=== PATIENT | female | born 1980 | race Caucasian/White ===

== ENCOUNTER 2016-04-14 05:38 | Inpatient (IN) | payer OTHER ==
[~2016-04-14] VITALS: Ht 160 cm; Wt 110.7 kg
[~2016-04-14 05:38] MED LIST: AMARYL 2 MG2 MG PO; BACTRIM DS 8001 TAB PO; FENOFIBRATE48 MG PO; FLEXERIL 5MG TAB5 MG PO; GABAPENTIN100 MG PO; GEMFIBROZIL600 MG PO; HCTZ/LISINOPRIL1 TAB PO; IBUPROFEN800 MG PO; LISINOPRIL10 MG PO; METFORMIN1000 MG PO; MOTRIN800 MG PO; OMEGA-3-ACID ETH1 GM PO; TYLENOL #31 TAB PO
--- NOTE | 2016-04-14 09:19 | Operative Report ---
Operative/Inv Procedure Report Surgery Date: 04/14/16 Name of Procedure: A low flap transverse section via Pfannenstiel skin incision lysis of adhesions curettage of uterus Pre-Operative Diagnosis: Previous section term Post-Operative Diagnosis: Same question of accreta Estimated Blood Loss: 500 Surgeon/Automatic Pinsetter Mechanic: TUAN MCKEON,PATRICK Amato and Dr. Jabari Damon Anesthesia: block Operative/Procedure Note Note: Procedure note patient was taken the operating room placed supine position after adequate skin testing for surgery the abdomen was prepped and draped sterile fashion Wilson had been placed sterilely patient was returned spine position the abdomen was taped patient was repositioned the skin was cut was through an old Pfannenstiel skin incision was carried down to the rectus fascia. Rectus fascia was cut in curvilinear fashion I direction using curved males peritoneal cavity was entered high into the abdomen after dissection of the rectus sheath. In the lower uterine segment uterus was nicked bladder flap was developed uterus is entered with the back of knife copious amounts of clear fluid was noted infant was delivered over the abdominal wall cord was reducible cord was clamped and cut was handed pump press operator was waiting delivering to aid in resuscitation placenta was floating inside the uterus at this point was removed there were adherent membranes to the posterior wall these were removed using a Anya a ring forcep on manually with wet dry laps at the end of the uterus was appeared clean I curettage with pushing correct was performed hemostasis was apparent uses oversewn running locking suture of 0 was indicated interrupted [id number] of 0 there was a second running lock of 0 as well uses turned to abdominal cavity irrigated close amounts warm sounds are clear is a small adhesion on the left tube was bleeding it Bovie coagulation stopped bleeding the adhesion all was by the fimbria. Peritoneum was reapproximated 0 fascia was reprocessed and to continue sutures #1 subcutaneous stitch was Bovie coag skin was approximated alivia at the end the case counts correct urine was clear patient was transported recovery room awake alert counts correct Findings: Dense adhesions and the rectus sheet one normal ovaries and tubes bilaterally enlarged uterus adherent membranes to the posterior wall cord around neck 1 viable infant three-vessel cord otherwise normal anatomy
--- NOTE | 2016-04-14 19:40 | Cons- Endocrinology ---
General Information and HPI Consulting Request Date of Consult: 04/14/16 Requested By: Dr Eric Reason for Consult: diabetes type 2 Source of Information: patient, old records Exam Limitations: no limitations History of Present Illness: This 35 yo woman has a known history of type 2 DM associted with obesity. She was managed during her with 10 units of NPH in tthe AM and 18 units of NPH in the PM. She was also on metformin 1000 mg twice a day. Her HBA1C is now 6.2%. She was followed by the high [facility] clinic at [facility]. She hasknown diabetic nephropathy with high grade proteinuria but normal creatinine. The patient underwent a C Section earlier today. She state she feels OK. She did take !0 units of NPH insulin this nmorning before the C Section. The patientalso has a history of hSever hypertriglyceridemia and pancreatis. She has been on Tricor and Lovasa in the past. Allergies/Medications Allergies: Coded Allergies: NO KNOWN ALLERGIES (04/12/16) Home Med List: Docusate Sodium 100 MG CAPSULE 100 MG PO AT BEDTIME PRN STOOL SOFTENER Glimepiride 2 MG TABLET 2 MG PO 8AM DIAB Ibuprofen 600 MG TABLET 600 MG PO Q6P PRN UTERINE CRAMPING METFORMIN HCL (Metformin) 1,000 MG TABLET 1 TAB PO BID DIABETES (Reported) Metformin Hydochloride (Glucophage) 500 MG TABLET 500 MG PO 1/2H B/BREAKF/ DINNER DIABETES OMEGA-3 ACID ETHYL ESTERS ([place]-3 Acid Ethyl Esters) 1 GRAM CAPSULE 2 CAP PO BID CHOLESTEROL (Reported) Oxycodone HCl/Acetaminophen (Percocet 5-325 MG Tablet) 5 MG-325 MG TABLET 1 TAB PO Q4P PRN PAIN SCALE 4-6 (MODERATE) Review of Systems Review of Systems Constitutional: Denies: chills, fever. Cardiovascular: Denies: chest pain. Respiratory: Denies: short of breath. Genitourinary: Denies: dysuria. Neurological/Psychological: Denies: anxiety, depressed. 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 Neck: normal inspection Respiratory: normal breath sounds Cardiovascular: regular rate/rhythm Gastrointestinal: decreased bowel sounds Extremities: normal inspection Assessment/Plan Assessment/Plan The patienthas a history of type 2 DM, morbid obesity, severe hypertriglyceridemia and episodes of pancreatitis in the past. She too 10 units of NPH insulin this morning pror to her C section. She will be strated on D51/2NS atc hour. Will monitor sugars and place her on low dose sliding scale wi Noivolog before meals. Consult Acknowledgment - Thank you for your consult request.
[2016-04-15 07:54] LABS: ABSOLUTE BASOPHIL COUNT 0 /CUMM (0.0-0.2); ABSOLUTE EOSINOPHIL COUNT 0.1 /CUMM (0.0-0.7); ABSOLUTE GRANULOCYTE CT 8.9 /CUMM (1.4-6.5); ABSOLUTE LYMPH COUNT 1.5 /CUMM (1.2-3.4); ABSOLUTE MONOCYTE COUNT 0.6 /CUMM (0.10-0.60); BASOPHIL % 0.4 % (0.0-2.0); EOSINOPHIL % 1.3 % (0-5); GRANULOCYTE % 79.4 % (42.2-75.2); HEMATOCRIT 30.5 % (37-47); MEAN CORPUSCULAR HGB 28.3 PG (27.0-31.0); MEAN CORPUSCULAR HGB CONC 33.6 G/DL (33.0-37.0); MEAN CORPUSCULAR VOLUME 84.3 FL (81.0-99.0); MEAN PLATELET VOLUME 9.5 FL (7.4-10.4); PLATELET COUNT 175 /CUMM (130-400); RBC DISTRIBUTION WIDTH 15.1 % (11.5-14.5); RED BLOOD CELL CT 3.62 /CUMM (4.20-5.40); WHITE BLOOD CELL COUNT 11.2 /CUMM (4.8-10.8)
--- NOTE | 2016-04-15 08:56 | PN- Diabetes ---
Assessment/Plan Assessment: The patient is doing well post . Her fingerstick blood sugar this morning was 197. She has been on premeal NovoLog which was held last night before dinner because her sugar got low probably secondary to the NPH insulin she had taken prior to admission. The patient states that prior to her her sugar was managed on metformin and glimepiride. She is not going to be breast-feeding. We will try to put her back on her usual diabetic medications and monitor her sugars closely. We will continue sliding-scale NovoLog before meals only for sugars above 200. Plan: Suggest begin metformin 500 mg twice a day. Also begin glimepiride 2 mg daily each a.m. Continue sliding-scale NovoLog before meals for now. Subjective Subjective: Feels okay Review of Systems Constitutional: Denies: chills, fever. Cardiovascular: Denies: chest pain. Respiratory: Denies: cough, short of breath. Gastrointestinal: Reports: abdominal pain (secondary to ). Skin: Reports: no symptoms. Objective Last 24 Hrs of Vital Signs/I&O 120/70 Physical Exam General Appearance: alert, awake, comfortable Head: normal appearance Respiratory: normal breath sounds Cardiovascular: regular rate/rhythm Extremities: normal inspection Current Medications: Current Medications Sig/Lexii Start time Last Medication Dose Route Stop Time Status Admin Acetaminophen 650 MG Q4P PRN 04/14 914 AC PO Acetaminophen 1,000 MG Q6P PRN 04/14 914 AC 04/14 N/A 1 UNIT IV 2240 Acetaminophen 1,000 MG ONCE ONE 04/14 09 DC 04/14 IV 04/14 0911 1006 Bisacodyl 10 MG DAILY NEEDED PRN 04/14 914 AC NE Carboprost 250 MCG .STK-MED ONE 04/14 1116 DC Tromethamine IM 04/14 1117 Dextrose/Sodium 1,000 ML Q8H 04/14 914 AC 04/14 Chloride IV 2053 Docusate Sodium 100 MG AT BEDTIME PRN 04/14 914 AC PO Enoxaparin Sodium 30 MG 2000 04/14 1999 AC 04/14 SC 2002 Enoxaparin Sodium 30 MG DAILY 04/14 1000 DC SC Hydromorphone HCl 0.2 MG .Q6MIN PRN 04/14 09 AC IV Hydromorphone HCl 0.3 MG .Q6MIN PRN 04/14 0910 AC IV Hydromorphone HCl 0.4 MG .Q6MIN PRN 04/14 0910 AC IV Hydroxyzine HCl 50 MG AT BEDTIME NEED.. 04/15 0000 AC PO 04/18 0001 Ibuprofen 600 MG Q6P PRN 04/14 0915 AC 04/15 PO 0420 Insulin Aspart 0 AC 04/15 0700 AC 04/15 SC 0807 Insulin Aspart 0 AC 04/14 1600 DC SC Lactated Ringer's 1,000 ML Q10H 04/14 0945 AC IV Lactated Ringer's 1,000 ML Q8H 04/14 0600 DC 04/14 IV 0659 Magnesium Hydroxide 30 ML DAILY NEEDED PRN 04/14 0915 AC PO 04/17 0916 Ondansetron HCl 4 MG Q6P PRN 04/14 1845 AC 04/14 IV 1853 Ondansetron HCl 4 MG ONCE PRN 04/14 0910 DC IV 04/14 0911 Oxycodone/ 1 TAB Q4P PRN 04/14 0915 AC 04/15 Acetaminophen PO 0806 Oxycodone/ 2 TAB Q4P PRN 04/14 0915 AC Acetaminophen PO Oxytocin 10 UNITS ONCE ONE 04/14 0915 DC IM 04/14 0916 Senna 187 MG AT BEDTIME NEED.. 04/14 0915 AC PO Findings Pertinent Lab/Zurdo Results: Laboratory Tests 04/15 0632 Hematology CBC w Diff NO MAN DIFF REQ WBC (4.8 - 10.8 /CUMM) 11.2 H RBC (4.20 - 5.40 /CUMM) 3.62 L Hgb (12.0 - 16.0 G/DL) 10.3 L Hct (37 - 47 %) 30.5 L MCV (81.0 - 99.0 FL) 84.3 MCH (27.0 - 31.0 PG) 28.3 RDW (11.5 - 14.5 %) 15.1 H Plt Count (130 - 400 /CUMM) 175 MPV (7.4 - 10.4 FL) 9.5 Gran % (42.2 - 75.2 %) 79.4 H Lymphocytes % (20.5 - 51.1 %) 13.4 L Monocytes % (1.7 - 9.3 %) 5.5 Eosinophils % (0 - 5 %) 1.3 Basophils % (0.0 - 2.0 %) 0.4 Absolute Granulocytes (1.4 - 6.5 /CUMM) 8.9 H Absolute Lymphocytes (1.2 - 3.4 /CUMM) 1.5 Absolute Monocytes (0.10 - 0.60 /CUMM) 0.6 Absolute Eosinophils (0.0 - 0.7 /CUMM) 0.1 Absolute Basophils (0.0 - 0.2 /CUMM) 0 PUBS MCHC (33.0 - 37.0 G/DL) 33.6
--- NOTE | 2016-04-15 09:13 | PN- Post Delivery/GYN ---
Subjective Subjective: c/o gas pain; pos flatus Review of Systems: neg Objective Last 24 Hrs of Vital Signs/I&O vss afebrile Physical Exam: drsg dry ext nt Assessment/Plan Assessment/Plan s/p rpt c/s pod1 advance diet increase activity oral meds d/c bro appreciate endo following Problem List: 1. 2. Gestational diabetes mellitus
--- NOTE | 2016-04-16 11:16 | PN- Post Delivery/GYN ---
Subjective Subjective: no c/o Review of Systems: neg Objective Last 24 Hrs of Vital Signs/I&O vss Physical Exam: incision c/d/i ext nt Assessment/Plan Assessment/Plan s/p c/s po0d2 stable discharge tomorrow Problem List: 1.
--- NOTE | 2016-04-16 13:07 | PN- Diabetes ---
Assessment/Plan Assessment: The patient is doing well post . She states that prior to her her DM was managed on metformin and glimepiride. She is not going to be breast-feeding. She was put on metformin 500 mg twice a day and Glimepiride 2 mg daily. Her FSGs were 197, 130, 127, 123 and 105. Plan: 1. stop Novolog coverage; 2. continue Metformin 500 mg twice a day; 3. continue Glimepiride 2 mg daily; 4. discharge plan for DM ---metformin 500 mg twice a day with breakfast and with dinner ---glimepiride 2 mg daily right before breakfast ---monitor FSGs ---patient refers following up with Dr. Del Cid after discharge. Subjective Subjective: She has been feeling well. Objective Last 24 Hrs of Vital Signs/I&O vital signs stable.
[2016-04-17] MEDS ORDERED: GLUCOPHAGE500 M1 PO (10:57)
[2016-04-17] MEDS ORDERED: IBUPROFEN600 M1 PO (10:57)
[2016-04-17] MEDS ORDERED: PERCOCET 5-3251 EACH PO (10:57)
[2016-04-17] MEDS ORDERED: GLIMEPIRIDE2 MG PO (10:57)
[2016-04-17] MEDS ORDERED: DOCUSATE SODIU100 M3 PO (10:57)
--- NOTE | 2016-04-21 11:21 | Surgical Discharge Summary ---
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 Family Services at Home: NONE What is Your Primary Language? Kazakh Review of Systems: -13 point review of systems as stated in the [facility] Hospital Course Course Attending Physician: PATRICK DICKERSON MD Primary Care Physician: NORMAN MCKEON,[facility] Hospital Course: Patient was admitted for repeat section she did well on she underwent a repeat low flap transverse section via Pfannenstiel skin incision. All we obtained a consult for endocrine with Dr. chan on the patient was placed on a diet and her insulin she did very well she ambulate well with the she denied any heavy bleeding or fever urinated freely without usual Wilson on she was discharged on third postoperative day with following physical exam she's an obese white female HEENT anicteric lungs clear heart S1 and S2 abdomen soft nontender incision clean dry and intact extremities negative edema assessment is status post repeat low flap transverse section I insulin-dependent diabetes . Allergies: Coded Allergies: NO KNOWN ALLERGIES (04/12/16) Disposition Summary Disposition Principal Diagnosis: Status post Repeat low flap transverse section Additional Diagnosis: Insulin-dependent diabetes glomerulonephritis Discharge Disposition: home or self care Discharge Instructions General Discharge Information Code Status: Full Code Patient's Diet: 2200 kcal ADA diet Patient's Activity: No heavy lifting greater than 15 pounds nothing in the vagina for 6 weeks no driving for 2 weeks Follow-Up Instructions/Appts: Follow-up with endocrine within the week for insulin changes. Staple removal in 1 week return visit and my office in 2 weeks Medications at Discharge Discharge Medications: Continue taking these medications: METFORMIN HCL (Metformin) 1,000 MG TABLET 1 Tablet ORAL TWICE DAILY Qty = 90 OMEGA-3 ACID ETHYL ESTERS ([place]-3 Acid Ethyl Esters) 1 GRAM CAPSULE 2 Capsule ORAL TWICE DAILY Qty = 120 Start taking the following new medications: Ibuprofen (Ibuprofen) 600 MG TABLET 600 Milligram ORAL EVERY SIX HOURS NEEDED as needed for UTERINE CRAMPING Qty = 30 No Refills Comments: Last Taken:04/17/16 Time:1110 Oxycodone HCl/Acetaminophen (Percocet 5-325 MG Tablet) 5 MG-325 MG TABLET 1 Tablet ORAL EVERY 4 HOURS NEEDED as needed for PAIN SCALE 4-6 (MODERATE ) Qty = 24 No Refills Comments: Last Taken:04/17/16 Time:1110 Docusate Sodium (Docusate Sodium) 100 MG CAPSULE 100 Milligram ORAL AT BEDTIME as needed for STOOL SOFTENER Qty = 60 No Refills Metformin Hydochloride (Glucophage) 500 MG TABLET 500 Milligram ORAL 1/2 HR BEFORE BREAKFAST/DINNER Qty = 60 No Refills Glimepiride (Glimepiride) 2 MG TABLET 2 Milligram ORAL DAILY @8AM Qty = 60 No Refills
== END 2016-04-17 12:05 | DRG 540 ==
LOC: GNO 05:38
PROVIDERS: ADMIT Specialist
PROC: 10D00Z1 Extraction of Products of Conception, Low, Open Approach (ICD-10-PCS; principal; 2016-04-14)
DX: O34.211 Maternal care for low transverse scar from previous cesarean delivery (principal); N85.8 Other specified noninflammatory disorders of uterus; Z3A.39 39 weeks gestation of pregnancy; Z37.0 Single live birth; O69.81X0 Labor and delivery complicated by cord around neck, without compression, not applicable or unspecified; O24.92 Unspecified diabetes mellitus in childbirth
CPT/HCPCS: GNOS; 36415; 81001; 87086; 87389; 88307; J0131; J0690; J1650; J2405; J7042; J7120